=== PATIENT | male | born 1995 | race Caucasian/White ===

== ENCOUNTER 2022-03-08 08:57 | Emergency (ER) | payer BC, SELFPAY ==
--- NOTE | 2022-03-08 08:59 | ED.URI ---
HPI - URI/Sore Throat General Chief Complaint: Upper Respiratory Infection Stated Complaint: sinus infection ear infection eyes matting Time Seen by Provider: 03/08/22 09:00 Source: patient and RN notes reviewed History of Present Illness HPI Narrative: Patient is a 26-year-old male who presents the urgent care with complaints of sinus pressure, wheezing, right ear pain and eyes matting. Patient states that he started losing yesterday and the rest of it all started this morning. Patient states that he was leaf blowing yesterday and does suffer from chronic allergies. Patient has been taking his daily allergy medication as well as ibuprofen. No other acute complaints. No acute distress noted. Patient aware the plan of care. Some parts of this dictation were generated by voice recognition software and may contain typographical and/or grammatical inaccuracies. Related Data Home Medications Medication Instructions Recorded Confirmed albuterol sulfate 2 puff INHALATION Q4-6H PRN 03/08/22 03/08/22 Allergies Allergy/AdvReac Type Severity Reaction Status Date / Time No Known Allergies Allergy Unverified 03/08/22 09:13 Review of Systems Review of Systems: CONSTITUTIONAL: Denies fever, chills, or sweats. EYES: Denies visual changes, redness, or discharge. ENT: Reports of sinus pressure, nasal congestion, postnasal drainage and right otalgia CARDIOVASCULAR: Denies chest pain, palpitations, or edema. RESPIRATORY: Reports a mild cough and wheezing GASTROINTESTINAL: Denies abdominal pain, nausea, vomiting, or diarrhea. GENITOURINARY: Denies dysuria or hematuria. SKIN: Denies rash or itching. MUSCULOSKELETAL: Denies back pain, joint pain, or myalgia. NEUROLOGIC: Denies headache, numbness, or weakness. All other systems reviewed are negative, except as documented in HPI. PMFSH Comments At the time of my signature, I reviewed and agree with the nursing past medical, surgical, social, and family history. There is no relevant family history pertinent to the patient complaint. Exam Narrative: GENERAL: This is a well-nourished, well-developed patient, in no apparent distress. HEAD: normocephalic, atraumatic. EYES: PERRL. Sclera clear/white. Vision is grossly intact. EARS: External ears normal, auditory canals clear and without drainage, TMs normal without perforation. Hearing grossly intact. NOSE: External nose normal with no obvious nasal discharge, bilateral erythemic nares with clear rhinorrhea and notable nasal congestion THROAT: Mucous membranes moist. Moderate erythema noted posterior pharynx NECK: Neck supple, non-tender without lymphadenopathy CARDIOVASCULAR: Regular rate and rhythm without murmurs, gallops, or rubs. RESPIRATORY: Slight expiratory wheezes throughout SKIN: warm, intact with no suspicious lesions or rash, good texture and turgor. NEURO: awake, alert, and oriented to person, place and time. There were no obvious focal neurologic abnormalities. EXTREMITIES: No clubbing, cyanosis, or edema. Course Course Level of Care: Express Care Visit Vital Signs Vital signs: Vital Signs Temperature 98.3 F 03/08/22 09:04 Pulse Rate 72 03/08/22 09:04 Respiratory Rate 16 03/08/22 09:04 Blood Pressure 142/72 H 03/08/22 09:04 Pulse Oximetry 99 03/08/22 09:04 Temperature 98.3 F 03/08/22 09:04 Pulse Rate 72 03/08/22 09:04 Respiratory Rate 16 03/08/22 09:04 Blood Pressure 142/72 H 03/08/22 09:04 Pulse Oximetry 99 03/08/22 09:04 Reviewed-patient is informed that they may have pre-hypertension or hypertension based on a blood pressure reading in the department. I recommend the patient call the primary care provider listed on their discharge instructions or a physician of their choice this week to arrange follow-up for further evaluation of possible pre-hypertension or hypertension. MDM - URI/Sore Throat MDM Narrative Medical decision making narrative: Advised patient complete the steroid regime
[2022-03-08 09:04] VITALS: BP 142/72; PULSE 72; RESP 16; TEMP 36.8; O2SAT 99
== END 2022-03-08 09:21 | disposition home or self-care (01) ==
PROVIDERS: Emergency Provider Nurse Practitioner Family
DX: J32.9 Chronic sinusitis, unspecified (principal)
CPT/HCPCS: 99213; G0463

== ENCOUNTER 2022-04-20 12:59 | Emergency (ER) | payer BC, SELFPAY ==
[2022-04-20 13:02] VITALS: BP 133/83; PULSE 78; RESP 16; TEMP 36.4; O2SAT 100
--- NOTE | 2022-04-20 13:17 | ED.GENADULT ---
HPI - General Adult General Chief complaint: Unspecified Stated complaint: needs inhaler refill Time Seen by Provider: 04/20/22 13:23 Source: patient and RN notes reviewed Mode of arrival: ambulatory Limitations: no limitations History of Present Illness HPI narrative: 26-year-old male with history of asthma presents with concern for albuterol inhaler refill. Reports he woke up with asthma symptoms overnight and did not have any albuterol left. Reports most of his flareups are at nighttime. Reports he used to moved to the area recently and does not have a primary care doctor. Reports he takes cetirizine for allergies. He denies current shortness of breath. Denies recent sick symptoms. Related Data Allergies Allergy/AdvReac Type Severity Reaction Status Date / Time No Known Allergies Allergy Verified 04/20/22 13:07 Review of Systems Review of Systems: CONSTITUTIONAL: Denies malaise, chills, sweats, or fever. EYES: Denies visual changes, redness, or discharge. ENT: Denies rhinorrhea, congestion, sinus pain, otalgia and sore throat. CARDIOVASCULAR: Denies chest pain, palpitations, or edema. RESPIRATORY: Denies cough. Denies current dyspnea. GASTROINTESTINAL: Denies abdominal pain, nausea, vomiting, diarrhea SKIN: Denies rash or itching. MUSCULOSKELETAL: Denies myalgia. NEUROLOGIC: Denies headache. All systems reviewed & are unremarkable except as noted in HPI and below PMFSH Comments At time of signature, agree with nursing past medical, surgical, social and family history. There is no relevant family history pertinent to the presenting complaint Exam Narrative: GENERAL: Well-appearing, well-nourished, and in no acute distress. HEAD: Normocephalic EYES: PERRLA, conjunctivae clear ENT: Nares clear. Mucous membranes moist. TM pearly almazan with sharp light reflex bilaterally; no tragal tenderness. Oropharynx not erythematous without lesions. Tonsils not enlarged and without exudate, no drooling, no hoarseness, no trismus, uvula midline. NECK: Supple. No lymphadenopathy CHEST: Clear to auscultation, breath sounds equal. No wheezing, rhonchi, rales, or stridor. No respiratory distress, speaks in full sentences. HEART: Regular rate and rhythm. No murmur heard. SKIN: Warm, dry, no rash. NEURO: Alert and oriented x3. PSYCH: Normal mood and affect Course Course Emergency Course: Advised patient to consider adding Benadryl before bed since most of his flareups are at nighttime. Advised also adding Flonase. Patient is aware of diagnosis, understands and agrees to treatment plan. Anticipatory guidance given. Patient agrees to follow-up as directed and is aware of reasons to seek care at the emergency department. Portions of this record may have been created with voice recognition software Level of Care: Express Care Visit Vital Signs Vital signs: Vital Signs Temperature 97.6 F 04/20/22 13:02 Pulse Rate 78 04/20/22 13:02 Respiratory Rate 16 04/20/22 13:02 Blood Pressure 133/83 04/20/22 13:02 Pulse Oximetry 100 04/20/22 13:02 Oxygen Delivery Room Air 04/20/22 13:02 Temperature 97.6 F 04/20/22 13:02 Pulse Rate 78 04/20/22 13:02 Respiratory Rate 16 04/20/22 13:02 Blood Pressure 133/83 04/20/22 13:02 Pulse Oximetry 100 04/20/22 13:02 Oxygen Delivery Room Air 04/20/22 13:02 Reviewed. Medical Decision Making MDM Narrative Medical decision making narrative: Exam findings show no acute concerns or changes; patient is non-toxic appearing and is in no distress. Patient is appropriate for outpatient treatment and follow-up. Vital Signs Vital Signs: Vital Signs Temperature 97.6 F 04/20/22 13:02 Pulse Rate 78 04/20/22 13:02 Respiratory Rate 16 04/20/22 13:02 Blood Pressure 133/83 04/20/22 13:02 Pulse Oximetry 100 04/20/22 13:02 Oxygen Delivery Room Air 04/20/22 13:02 Temperature 97.6 F 04/20/22 13:02 Pulse Rate 78 04/20/22 13:02 Respiratory Rate 16
== END 2022-04-20 13:35 | disposition home or self-care (01) ==
PROVIDERS: Emergency Provider Nurse Practitioner
DX: J45.909 Unspecified asthma, uncomplicated (principal)
CPT/HCPCS: 99211; G0463

== ENCOUNTER 2022-06-04 11:22 | Emergency (ER) | payer BC, SELFPAY ==
[2022-06-04 11:27] VITALS: BP 106/77; PULSE 107; RESP 16; TEMP 37.6; O2SAT 98
--- NOTE | 2022-06-04 11:30 | ED.URI ---
HPI - URI/Sore Throat General Chief Complaint: Headache Stated Complaint: Body Aches/Headache/Nausea Time Seen by Provider: 06/04/22 11:33 Source: patient Mode of arrival: ambulatory Limitations: no limitations History of Present Illness HPI Narrative: Mr. Eid is a 26-year-old male patient presenting to the clinic today with complaints of body aches, chills, headaches, and nausea 1 day. He reports his symptoms began yesterday. He denies any known fever. Both of his children are here in the clinic being seen for similar symptoms. Related Data Allergies Allergy/AdvReac Type Severity Reaction Status Date / Time No Known Allergies Allergy Verified 04/20/22 13:07 Review of Systems Review of Systems: Pertinent positives per HPI. Patient denies any fever, rash, visual changes, dizziness, sore throat, shortness of breath, chest pain, palpitations, vomiting, diarrhea, constipation, abdominal pain, or any urinary issues. PMFSH Comments At the time of my signature, I reviewed and agree with the nursing past medical, surgical, social, and family history. There is no relevant family history pertinent to the patient complaint. Exam Narrative: General: Well-developed, well nourished, in no apparent distress Head: Normocephalic, atraumatic Eyes: Pupils equally round and reactive to light bilaterally, EOM intact, sclera and conjunctive clear, no discharge, lids normal Ears: TMs intact and dull, ear canals clear, no drainage, grossly hearing normal. Nose: Nares patent, clear nasal discharge, mild inflammation, no sinus tenderness. Mouth: Oropharynx without lesions or masses, good dentition, MMM. Oropharynx mildly red Neck: Supple, trachea midline, no enlargement of anterior or posterior cervical nodes, no thyroid masses or goiter palpable. Cardio: Regular rate and rhythm, s1 and s2 normal, no murmur appreciated. Resp: Clear to auscultation bilaterally anteriorly and posteriorly, no rhonchi, rales, wheezing or rubs Course Course Emergency Course: Portions of this record may have been created with voice recognition software. Level of Care: Express Care Visit Vital Signs Vital signs: Vital Signs Temperature 37.6 C 06/04/22 11:27 Pulse Rate 107 H 06/04/22 11:27 Respiratory Rate 16 06/04/22 11:27 Blood Pressure 106/77 06/04/22 11:27 Pulse Oximetry 98 06/04/22 11:27 Oxygen Delivery Room Air 06/04/22 11:27 Temperature 37.6 C 06/04/22 11:27 Pulse Rate 107 H 06/04/22 11:27 Respiratory Rate 16 06/04/22 11:27 Blood Pressure 106/77 06/04/22 11:27 Pulse Oximetry 98 06/04/22 11:27 Oxygen Delivery Room Air 06/04/22 11:27 Vital signs reviewed MDM - URI/Sore Throat MDM Narrative Medical decision making narrative: At the time of visit patient is resting comfortably on the exam table. COVID test was completed and was negative in the clinic. Recommend retesting in 48 hours if symptoms persist. Supportive measures were discussed with the patient he voiced understanding of discharge instructions and agrees to the treatment plan. Differential Diagnosis Differential diagnosis: Likely upper respiratory infection, viral infection, influenza, pharyngitis and other (Viral syndrome, COVID) Lab Data Labs: Lab Results 06/04/22 Range/Units 11:37 POC SARS CoV-2 Ag Negative (Negative) Discharge Plan Discharge Clinical Impression: Viral syndrome Patient Disposition: Home, Self-Care Condition: Stable Instructions: Antibiotic Form, Viral Syndrome (ED) Additional Instructions: Covid testing negative in the clinic-recommend retesting for COVID in 48 hours. Take prescription medications only as prescribed -ondansetron Increase fluids and stay well hydrated Tylenol/motrin for pain/fever Flonase and OTC antihistamines as directed Vicks vapor rub to open sinuses Sinus rinses for congestion Cepacol spray, cough drops, throat lozenges, warm tea with honey/lemon
== END 2022-06-04 12:49 | disposition home or self-care (01) ==
PROVIDERS: Emergency Provider Nurse Practitioner Family
DX: B34.9 Viral infection, unspecified (principal); Z20.822 Contact with and (suspected) exposure to COVID-19
CPT/HCPCS: 87426; 99213; C9803; G0463

== ENCOUNTER 2023-03-08 11:33 | Emergency (ER) | payer BC, SELFPAY ==
--- NOTE | 2023-03-08 11:35 | ED.URI ---
HPI - URI/Sore Throat General Chief Complaint: Upper Respiratory Infection Stated Complaint: Headache/Fever Time Seen by Provider: 03/08/23 11:35 Source: patient and RN notes reviewed History of Present Illness HPI Narrative: Patient is a 27-year-old male who presents to the Urgent complaints of sinus congestion and intermittent headaches. Patient states he has not a headache for the last 2 days. States the symptoms started on and is consistent with his normal allergy like symptoms. Patient states he has been taking his allergy medication and using ibuprofen however his workplace is requesting a COVID test. Patient would be on day 5 of quarantine as of today. Patient has not used [id number] COVID test at home. Denies any fever, nausea or vomiting. States that his symptoms have nearly resolved. No other acute complaints. No acute distress noted. Patient aware of the plan of care. Some parts of this dictation were generated by voice recognition software and may contain typographical and/or grammatical inaccuracies. Related Data Home Medications Medication Instructions Recorded Confirmed escitalopram oxalate 10 mg tablet mg 03/08/23 Allergies Allergy/AdvReac Type Severity Reaction Status Date / Time No Known Allergies Allergy Verified 04/20/22 13:07 Review of Systems Review of Systems: CONSTITUTIONAL: Denies fever, chills, or sweats. EYES: Denies visual changes, redness, or discharge. ENT: Reports of sinus congestion/pressure with rhinorrhea and postnasal drainage CARDIOVASCULAR: Denies chest pain, palpitations, or edema. RESPIRATORY: Denies cough or dyspnea. GASTROINTESTINAL: Denies abdominal pain, nausea, vomiting, or diarrhea. GENITOURINARY: Denies dysuria or hematuria. SKIN: Denies rash or itching. MUSCULOSKELETAL: Denies back pain, joint pain, or myalgia. NEUROLOGIC: Denies headache, numbness, or weakness. All other systems reviewed are negative, except as documented in HPI. PMFSH Comments At the time of my signature, I reviewed and agree with the nursing past medical, surgical, social, and family history. There is no relevant family history pertinent to the patient complaint. Exam Narrative: GENERAL: This is a well-nourished, well-developed patient, in no apparent distress. HEAD: normocephalic, atraumatic. Reported frontal sinus tenderness EYES: PERRL. Sclera clear/white. Vision is grossly intact. EARS: External ears normal, auditory canals clear and without drainage, TMs normal without perforation. Hearing grossly intact. NOSE: External nose normal with no obvious nasal discharge, mild bilateral erythema nares with clear to yellow rhinorrhea with notable nasal congestion THROAT: Mucous membranes moist, posterior pharynx clear. Moderate postnasal drainage NECK: Neck supple RESPIRATORY: Clear to auscultation. Breath sounds equal bilaterally. No wheezes, rales, or rhonchi. GASTROINTESTINAL: Abdomen soft, non-tender, nondistended. Bowel sounds are active. No hepato-splenomegaly, or palpable masses. No guarding. SKIN: warm, intact with no suspicious lesions or rash, good texture and turgor. NEURO: awake, alert, and oriented to person, place and time. There were no obvious focal neurologic abnormalities. EXTREMITIES: No clubbing, cyanosis, or edema. Course Course Level of Care: Express Care Visit Vital Signs Vital signs: Vital Signs Temperature 98.1 F 03/08/23 11:38 Pulse Rate 84 03/08/23 11:38 Respiratory Rate 20 03/08/23 11:38 Blood Pressure 129/92 H 03/08/23 11:38 Pulse Oximetry 99 03/08/23 11:38 Oxygen Delivery Room Air 03/08/23 11:38 Temperature 98.1 F 03/08/23 11:38 Pulse Rate 84 03/08/23 11:38 Respiratory Rate 20 03/08/23 11:38 Blood Pressure 129/92 H 03/08/23 11:38 Pulse Oximetry 99 03/08/23 11:38 Oxygen Delivery Room Air 03/08/23 11:38 Reviewed- Patient is informed that they may have pre-hypertension or hypertension based on
[2023-03-08 11:38] VITALS: BP 129/92; PULSE 84; RESP 20; TEMP 36.7; O2SAT 99
== END 2023-03-08 12:17 | disposition home or self-care (01) ==
PROVIDERS: Emergency Provider Nurse Practitioner Family
DX: J32.9 Chronic sinusitis, unspecified (principal)
CPT/HCPCS: 99211; G0463